=== PATIENT | female | born 1990 | race Caucasian/White ===

== ENCOUNTER 2019-08-14 17:06 | Emergency (ER) | payer OTHER ==
[~2019-08-14] VITALS: Ht 157.5 cm; Wt 84.1 kg
[2019-08-14 17:14] VITALS: TEMP 98.6
[2019-08-14 18:01] LABS: BASO % 0.4 % (0.0-2.0); EOS # 0.1 (0.0-0.7); GRAN % 61.3 % (42.2-75.2); HEMATOCRIT 41.2 % (37.0-47.0); LYMPH # 2.4 (1.2-3.4); LYMPH % 29.4 % (20.0-51.0); MEAN CELL VOLUME 93 fl (80.0-100.0); MEAN CORPUSCULAR HEMOGLOBIN 32 pg (27.0-31.0); MEAN CORPUSCULAR HGB CONC 34 g/dl (33.0-37.0); MEAN PLATELET VOLUME 10.3 fl (7.4-10.4); MONO # 0.6 (0.1-0.6); MONO % 7.7 % (1.7-9.3); PLATELET COUNT 266 K/mm3 (130-400); RED BLOOD COUNT 4.45 M/mm3 (4.10-5.30); REDCELL DISTRIBUTION WIDTH-CV 12.1 % (11.5-14.5)
[2019-08-14 18:03] LABS: ALBUMIN 4.3 gm/dL (3.5-5.0); BILIRUBIN,TOTAL 0.3 mg/dL (0.0-1.0); C-REACTIVE PROTEIN 0.9 mg/dL (0.0-0.9); CALCIUM 9.5 mg/dL (8.4-10.2); CREATININE, serum 0.68 (0.52-1.25); POTASSIUM 4.1 mmol/L (3.4-5.0); TOTAL PROTEIN 7.8 gm/dL (6.4-8.2)
[2019-08-14 18:45] LABS: COLLECTION METHOD CLEAN CATCH
[2019-08-14 19:00] LABS: MUCOUS Present /lpf; PH 6 (5-8); URINE APPEARANCE Clear; URINE BACTERIA None Seen /hpf; URINE BILIRUBIN Negative (NEGATIVE); URINE BLOOD 2+ (NEGATIVE); URINE COLOR Yellow; URINE GLUCOSE Negative (NEGATIVE); URINE KETONE Negative (NEGATIVE); URINE LEUKOCYTE ESTERASE Negative (NEGATIVE); URINE NITRATE Negative (NEGATIVE); URINE PROTEIN(semi-quant) Negative (NEGATIVE); URINE UROBILINOGEN Negative (NEGATIVE)
[2019-08-14] MEDS ORDERED: ZOFRAN ODT4 MG PO (19:34)
[2019-08-14 19:51] VITALS: BP 115/72; PULSE 58
== END 2019-08-14 19:38 | disposition home or self-care (01) ==
LOC: COL.ER 17:06
PROVIDERS: Physician Assistant
DX: R11.2 Nausea with vomiting, unspecified (principal)
CPT/HCPCS: J1885; J2405; J7030

== ENCOUNTER 2019-09-29 21:01 | Emergency (ER) | payer OTHER ==
[~2019-09-29] VITALS: Ht 154.9 cm; Wt 81.8 kg
[~2019-09-29 21:01] MED LIST: ZOFRAN ODT4 MG PO
[2019-09-29 21:09] VITALS: TEMP 98.9
[2019-09-29 22:12] LABS: STREP SCREEN NEGATIVE
[2019-09-29] MEDS ORDERED: PREDNISONE20 MG PO (22:53)
[2019-09-29] MEDS ORDERED: ZITHROMAX Z PA250 MG PO (22:53)
[2019-09-29 23:11] VITALS: BP 115/90; PULSE 85
== END 2019-09-29 23:12 | disposition home or self-care (01) ==
LOC: COL.ER 21:01
PROVIDERS: Physician Assistant
DX: J06.9 Acute upper respiratory infection, unspecified (principal)
CPT/HCPCS: J7512

== ENCOUNTER 2020-04-20 14:23 | Emergency (ER) | payer SELFPAY ==
[~2020-04-20] VITALS: Ht 154.9 cm; Wt 72.7 kg
[~2020-04-20 14:23] MED LIST changes: +PREDNISONE20 MG PO; +ZITHROMAX Z PA250 MG PO
[2020-04-20 15:47] VITALS: BP 124/64; PULSE 88; TEMP 98.6
[2020-04-20] MEDS ORDERED: BACTRIM DS 8001 TAB PO (15:57)
== END 2020-04-20 15:50 | disposition home or self-care (01) ==
LOC: COL.ER 14:23
DX: L03.113 Cellulitis of right upper limb (principal); Z23 Encounter for immunization; W01.198A Fall on same level from slipping, tripping and stumbling with subsequent striking against other object, initial encounter; Y99.0 Civilian activity done for income or pay
CPT/HCPCS: J0696; J1885

== ENCOUNTER 2020-04-22 02:29 | Inpatient (IN) | payer SELFPAY ==
[2020-04-22] VITALS (13 sets, daily range): BP systolic 100–121; BP diastolic 40–65; PULSE 52–87; TEMP 98.1–98.9
[~2020-04-22] VITALS: Ht 154.9 cm; Wt 81.6 kg
[~2020-04-22 02:29] MED LIST changes: +BACTRIM DS 8001 TAB PO
[2020-04-22 03:11] LABS: BASO % 0.4 % (0.0-2.0); EOS # 0.1 (0.0-0.7); EOS % 0.9 % (0-4.0); GRAN # 4.8 (1.4-6.5); GRAN % 63.3 % (42.2-75.2); HEMATOCRIT 40.8 % (37.0-47.0); HEMOGLOBIN 13.4 g/dl (12.5-16.0); LYMPH # 1.9 (1.2-3.4); LYMPH % 25.6 % (20.0-51.0); MEAN CELL VOLUME 95 fl (80.0-100.0); MEAN CORPUSCULAR HEMOGLOBIN 31 pg (27.0-31.0); MEAN CORPUSCULAR HGB CONC 33 g/dl (33.0-37.0); MEAN PLATELET VOLUME 10.6 fl (7.4-10.4); MONO # 0.7 (0.1-0.6); MONO % 9.5 % (1.7-9.3); PLATELET COUNT 227 K/mm3 (130-400); REDCELL DISTRIBUTION WIDTH-CV 12.5 % (11.5-14.5)
[2020-04-22 03:22] LABS: ALBUMIN 4.2 gm/dL (3.5-5.0); BILIRUBIN,TOTAL 0.7 mg/dL (0.0-1.0); CALCIUM 9.4 mg/dL (8.4-10.2); CREATININE, serum 0.89 (0.52-1.25); POTASSIUM 4.2 mmol/L (3.4-5.0); TOTAL PROTEIN 8.1 gm/dL (6.4-8.2)
[2020-04-22 03:35] LABS: C-REACTIVE PROTEIN 13.6 mg/dL (0.0-0.9)
--- NOTE | 2020-04-22 06:35 | NUR ---
Patient arrived from ED via bed. Vancomycin infusing to left hand IV. Reported to have itching and rash across upper back and her chest and was given IV Benadryl in ED. Area to right elbow is red, hot, and swollen. Area marked. Ortho in to see patient this morning. Patient denies needs. 5 page completed, med rec completed, and infectious screening completed. Will report off to day shift nurse.
--- NOTE | 2020-04-22 10:20 | NUR ---
Merchandise Support Associate met with patient to discuss discharge planning. Patient lives in [place] with her [place] (ph#[phone]). Patient reports she has a primary care physician on [place] and obtains medications from [facility]. Patient reports she has , however she also has workmans comp as her admit is related to a work injury. Patient is employed at the [employer] in [facility]. Patient does not use any DME and is independent with ADLS. Patient does not have Advance Directives and is not interested in setting them up at this time. SELVIN consulted Sabi Financial Counselor who advised patient will appear as self pay until patient contacts her HR department to obtain workmans comp information. SELVIN will continue to follow.
--- NOTE | 2020-04-22 10:45 | NUR ---
PATIENT GOING DOWN TO OR VIA BED
--- NOTE | 2020-04-22 13:20 | NUR ---
PATIENT BACK IN ROOM 347 AND IS DROWSY POST OP. VSS. O2 @ 2L PER NC WITH SATS IN MID TO UPPER 90'S. PAIN WELL MANAGED AT THIS TIME. PACU REPORTS SOME PAIN ISSUES AND GAVE FENTANYL. PAIN IS NOW 2-3 ON PAIN SCALE AND PATIENT IS SLEEPING COMFORTABLY. RIGHT ELBOW DRESSING IS CD&I WITH BULKY ACEWRAP. HEAD TO TOE ASSESSMENT WNL. NO C/O N/V. IV FLUIDS INFUSING INTO LEFT HAND. NO OTHER NEEDS AT THIS TIME. CALL LIGHT IN REACH.
[2020-04-23 03:56] VITALS: BP 109/54; PULSE 56; TEMP 97.8
--- NOTE | 2020-04-23 05:10 | NUR ---
Patient has rested well throughout the night. PRN pain medication given x1 this shift. Antibiotics given per orders. Dressing to right elbow noted to be clean, dry, and intact. Patient states the dressing makes her arm heavy, and states its hard to move around. Patient educated about contact precautions d/t MRSA in her wound. Patient verbalized understanding. IVF continue to left hand. Patient independent with ambulation to the restroom. Denies any further needs. Will continue to monitor.
--- NOTE | 2020-04-23 07:00 | NUR ---
Bedside shift report received from LUIS Tidwell. pT awake and resting in bed, requests water, will provide.
[2020-04-23 08:00] VITALS: BP 113/68; PULSE 55; TEMP 97.9
--- NOTE | 2020-04-23 09:06 | NUR ---
Assessment charted. Pt on side napping, RUE elevated on pillows. 1+ swelling to R hand but CMS intact and pt able to move fine. Bulky occlusive dressing in place on RUE, no drainage. LH INT, taking PO well. Pt reports pain at 6/10 to R elbow, PRN pain meds provided. Denies needs, will continue to monitor.
--- NOTE | 2020-04-23 11:34 | NUR ---
PT called d/t discomfort and swelling in R hand, called Allegra Velasco CARBURIZER with Ortho and per her recs loosened CONNIE wraps on arms and pt stated it was feeling much better. Called Jabari and left VM for recs on antibiotics.
[2020-04-23 12:05] VITALS: BP 117/64; PULSE 69; TEMP 97.8
[2020-04-23 15:17] VITALS: BP 106/52; PULSE 61; TEMP 97.6
--- NOTE | 2020-04-23 18:24 | NUR ---
Pt resting in bed, sleeping on and off this afternoon, PRN medications given for pain as needed. Swelling to R hand improved since loosening CONNIE wrap. Will give bedside shift report to nightshift nurse who will resume care.
--- NOTE | 2020-04-23 19:30 | NUR ---
Assessment complete. Resting in bed. Right elbow drsg CDI. Right hand mild edema, moves all digits, CMS intact. Reports pain right elbow slightly improved after pain med. Denies needs at this time.
[2020-04-23 19:50] VITALS: BP 109/45; PULSE 69; TEMP 97.6
[2020-04-24 00:25] VITALS: BP 118/56; PULSE 61; TEMP 98
--- NOTE | 2020-04-24 02:03 | NUR ---
PRN Zofran admin for c/o nausea.
[2020-04-24 03:51] VITALS: BP 105/51; PULSE 63; TEMP 98.3
[2020-04-24 07:05] LABS: BASO % 0.2 % (0.0-2.0); EOS # 0.1 (0.0-0.7); EOS % 1.9 % (0-4.0); GRAN # 2.5 (1.4-6.5); GRAN % 46.4 % (42.2-75.2); LYMPH # 2.4 (1.2-3.4); LYMPH % 44.9 % (20.0-51.0); MEAN CELL VOLUME 99 fl (80.0-100.0); MEAN CORPUSCULAR HGB CONC 33 g/dl (33.0-37.0); MEAN PLATELET VOLUME 11.1 fl (7.4-10.4); MONO # 0.3 (0.1-0.6); MONO % 6.4 % (1.7-9.3); PLATELET COUNT 215 K/mm3 (130-400); RED BLOOD COUNT 3.55 M/mm3 (4.10-5.30); REDCELL DISTRIBUTION WIDTH-CV 12.6 % (11.5-14.5)
[2020-04-24 07:12] LABS: HEMATOCRIT 35.1 % (37.0-47.0); HEMOGLOBIN 11.4 g/dl (12.5-16.0); MEAN CORPUSCULAR HEMOGLOBIN 32 pg (27.0-31.0)
[2020-04-24 07:26] LABS: POTASSIUM 4.3 mmol/L (3.4-5.0)
[2020-04-24 07:29] LABS: CREATININE, serum 0.66 (0.52-1.25)
[2020-04-24 07:34] VITALS: BP 103/59; PULSE 50; TEMP 97.8
--- NOTE | 2020-04-24 09:53 | NUR ---
PORTIA Tinoco here to see patient.
--- NOTE | 2020-04-24 09:54 | NUR ---
Patient alert and oriented, answers questions appropriately. See assessment. RUE with gauze and CONNIE in place, CDI. Active ROM to RUE, pulses palpable, no numbness or tingling noted. No c/o pain or discomfort at this time.
[2020-04-24 12:00] VITALS: BP 109/51; PULSE 62; TEMP 97.9
[2020-04-24 15:47] VITALS: BP 114/50; PULSE 68; TEMP 97.9
[2020-04-24 20:00] VITALS: BP 107/62; PULSE 57; TEMP 97.9
--- NOTE | 2020-04-24 20:00 | NUR ---
At time of assessment, patient is awake in bed watching TV. She does not complain of any pain. Heart sounds are normal/regular, lungs are clear, no edema is present. Her right elbow cellulitis area is dressed with an aquacell and is clean, dry and intact. No new concerns at this time. Will continue to monitor.
[2020-04-25] VITALS: BP 104/62; PULSE 62; TEMP 98
[2020-04-25 03:52] VITALS: BP 106/52; PULSE 62; TEMP 98
[2020-04-25 07:09] LABS: BASO % 0.2 % (0.0-2.0); EOS # 0.2 (0.0-0.7); EOS % 3.3 % (0-4.0); GRAN # 2.3 (1.4-6.5); GRAN % 41.7 % (42.2-75.2); HEMATOCRIT 38.9 % (37.0-47.0); HEMOGLOBIN 12.6 g/dl (12.5-16.0); LYMPH # 2.6 (1.2-3.4); LYMPH % 47.7 % (20.0-51.0); MEAN CELL VOLUME 97 fl (80.0-100.0); MEAN CORPUSCULAR HEMOGLOBIN 32 pg (27.0-31.0); MEAN CORPUSCULAR HGB CONC 32 g/dl (33.0-37.0); MEAN PLATELET VOLUME 10.6 fl (7.4-10.4); MONO # 0.4 (0.1-0.6); MONO % 6.9 % (1.7-9.3); PLATELET COUNT 245 K/mm3 (130-400); REDCELL DISTRIBUTION WIDTH-CV 12.3 % (11.5-14.5)
[2020-04-25 07:35] LABS: ALBUMIN 3.3 gm/dL (3.5-5.0); BILIRUBIN,TOTAL 0.2 mg/dL (0.0-1.0); CALCIUM 8.5 mg/dL (8.4-10.2); CREATININE, serum 0.68 (0.52-1.25); POTASSIUM 4.2 mmol/L (3.4-5.0); TOTAL PROTEIN 6.7 gm/dL (6.4-8.2)
--- NOTE | 2020-04-25 08:00 | NUR ---
Patient in bed resting. Alert and oriented x 3. Assessment complete. Aquacell to right elbow is CDI. IV to left forarm noted. Denies pain or further needs at this time.
[2020-04-25 08:03] VITALS: BP 105/59; PULSE 53; TEMP 98.1
[2020-04-25] MEDS ORDERED: CUBICIN 500MG500 MG IV (11:10)
[2020-04-25 11:17] VITALS: BP 97/45; PULSE 59; TEMP 98
--- NOTE | 2020-04-25 13:57 | NUR ---
The patient is to discharge back home today, 04/25. ID is recommending Dapto IV daily for 14 days. The patient is self pay and pending Workers Compensation. SELVIN met with the patient to discuss the IV antibiotics and getting them in the [facility]. The patient was agreeable to this and states that she would be able to get the the [facility] everyday. She states that her employer, [employer], is filling out the Workers Comp paperwork today and that she will be going there after she discharges to shredder picker the paperwork and will then bring it back to the hospital. SELVIN notified Financial Counselor, Sabi. SELVIN contacted and faxed the patient's discharge orders and script to Leslie in the [facility]. Leslie reports that the patient will need to arrive tomorrow at 0800 for the IV antibiotics. SELVIN informed the patient and the patient's RN of this. No additional needs at this time.
--- NOTE | 2020-04-25 15:40 | NUR ---
Discharge education provided to patient. Educated patient on PICC line care and follow up appointments. Educated on new antibiotic. All questions answered. Educated on when to call provider. Denies further needs at this time. Patient out with surgical staff. No further needs at this time.
[2020-04-26] MEDS ORDERED: BACTRIM DS 8001 TAB PO ×2 (08:47→08:48)
== END 2020-04-25 15:40 | disposition home or self-care (01) | DRG 501 ==
LOC: COL.ER 02:29 → SURG 04:11 → COL.ER 04:11 → SURG 04:11
PROVIDERS: Orthopaedic Surgery; Physician Assistant
PROC: 0MT30ZZ Resection of Right Elbow Bursa and Ligament, Open Approach (ICD-10-PCS; principal; 2020-04-22 10:30)
PROC: 02HV33Z Insertion of Infusion Device into Superior Vena Cava, Percutaneous Approach (ICD-10-PCS; 2020-04-25)
DX: M70.22 Olecranon bursitis, left elbow (principal); L03.113 Cellulitis of right upper limb; E66.9 Obesity, unspecified; B95.62 Methicillin resistant Staphylococcus aureus infection as the cause of diseases classified elsewhere; Z68.34 Body mass index [BMI] 34.0-34.9, adult; Z98.51 Tubal ligation status
CPT/HCPCS: OP; 99222-AI; 99232-AI; 99239; A9284; C1751; J0690; J0878; J1100; J1170; J1200; J1885; J2405; J2704; J3010; J3370; J7030; J7050

== ENCOUNTER 2020-05-09 08:00 | Outpatient (RCR) | payer SELFPAY ==
[2020-04-26 09:07] VITALS: BP 112/96; PULSE 71; TEMP 98.2
[2020-04-27 08:02] VITALS: BP 109/75; PULSE 82; TEMP 98.2
[2020-04-28 08:10] VITALS: BP 117/75; PULSE 82; TEMP 98.7
[2020-04-29 08:06] VITALS: BP 125/80; PULSE 78; TEMP 98.1
[2020-04-30 07:44] VITALS: BP 123/75; PULSE 67; TEMP 98.3
[2020-05-02 08:49] VITALS: BP 106/70; PULSE 62; TEMP 97.8
--- NOTE | 2020-05-02 08:50 | NUR ---
PICC intact left upper arm. With sterile technique left upper arm PICC dressing change done with insertion site cleansed with ChloraPrep 1, chlorhexidine impregnated disc applied, skin prep, StatLock, and Tegaderm applied. No signs or symptoms of IV complications noted. No concerns voiced. Arm wrapped with Jae to protect catheter.
[2020-05-02 09:38] LABS: ALBUMIN 4.2 gm/dL (3.5-5.0); BILIRUBIN,TOTAL 0.5 mg/dL (0.0-1.0); CALCIUM 9.3 mg/dL (8.4-10.2); CREATININE, serum 0.77 (0.52-1.25); POTASSIUM 4.4 mmol/L (3.4-5.0); TOTAL PROTEIN 7.9 gm/dL (6.4-8.2)
[2020-05-03 09:13] VITALS: BP 99/74; PULSE 72; TEMP 97.9
[2020-05-04 08:50] VITALS: BP 110/60; PULSE 66; TEMP 97.8
[2020-05-05 08:34] VITALS: BP 132/77; PULSE 70; TEMP 98
[2020-05-06 09:15] VITALS: BP 112/73; PULSE 65; TEMP 97.7
[2020-05-07 08:40] VITALS: BP 120/72; PULSE 62; TEMP 97.6
[2020-05-08 09:09] VITALS: BP 116/78; PULSE 63; TEMP 97.4
[~2020-05-09] VITALS: Ht 154.9 cm; Wt 80.4 kg
[2020-05-09 08:30] VITALS: BP 116/85; PULSE 69; TEMP 97.5
[2020-05-09 08:48] LABS: BASO % 0.4 % (0.0-2.0); EOS # 0.1 (0.0-0.7); EOS % 0.8 % (0-4.0); GRAN # 3.6 (1.4-6.5); GRAN % 48.2 % (42.2-75.2); HEMATOCRIT 39.8 % (37.0-47.0); HEMOGLOBIN 13.3 g/dl (12.5-16.0); LYMPH # 3.3 (1.2-3.4); LYMPH % 43.9 % (20.0-51.0); MEAN CELL VOLUME 95 fl (80.0-100.0); MEAN CORPUSCULAR HEMOGLOBIN 32 pg (27.0-31.0); MEAN CORPUSCULAR HGB CONC 33 g/dl (33.0-37.0); MEAN PLATELET VOLUME 10.8 fl (7.4-10.4); MONO # 0.5 (0.1-0.6); MONO % 6.6 % (1.7-9.3); PLATELET COUNT 255 K/mm3 (130-400); REDCELL DISTRIBUTION WIDTH-CV 12.3 % (11.5-14.5)
[2020-05-09 09:06] LABS: ALANINE AMINOTRANSFERASE 18 U/L (4-34); ALBUMIN 4.2 gm/dL (3.5-5.0); ALKALINE PHOSPHATASE 77 U/L (50-136); ANION GAP 7 mmol/L (7-16); AST,SGOT 23 U/L (15-37); BILIRUBIN,TOTAL 0.5 mg/dL (0.0-1.0); BLOOD UREA NITROGEN 13 mg/dL (7-17); CALCIUM 9.2 mg/dL (8.4-10.2); CARBON DIOXIDE 24 mmol/L (22-30); CHLORIDE 106 mmol/L (98-107); CREATINE KINASE 68 U/L (30-135); CREATININE, serum 0.72 (0.52-1.25); GLUCOSE 99 mg/dL (74-106); POTASSIUM 3.7 mmol/L (3.4-5.0); SODIUM 138 mmol/L (137-145); TOTAL PROTEIN 7.7 gm/dL (6.4-8.2)
[2020-05-09 09:08] LABS: C-REACTIVE PROTEIN < 0.5 mg/dL (0.0-0.9)
[2020-05-09 10:13] LABS: ERYTHROCYTE SEDIMENTATION RATE 8 mm/hr (0-20)
--- NOTE | 2020-05-09 11:36 | NUR ---
PT WAS CALLED AND NOTIFIED OF HER PO ABX THAT WAS SENT TO HER PHARMACY. PT ENCOURAGED TO START TODAY. PT STATED SHE WAS WAITING ON HER WORK COMP CHECK TO COME IN THE MAIL TODAY AND THEN SHE WILL BE ABLE TO PAY FOR THE ABX. PT IS AWARE OF F/U APPT ON 05/26/2020.
== END 2020-05-09 09:30 | disposition still patient (30) ==
LOC: EUO 08:00
PROVIDERS: Hospitalist; Nurse Practitioner
DX: Z22.322 Carrier or suspected carrier of Methicillin resistant Staphylococcus aureus (principal); M70.20 Olecranon bursitis, unspecified elbow; T14.8XXA Other injury of unspecified body region, initial encounter
CPT/HCPCS: J0878

== ENCOUNTER → 2020-05-09 | Outpatient (CLI) | payer SELFPAY ==
[~2020-05-09] MED LIST changes: +CUBICIN 500MG500 MG IV
== END ==
LOC: ZCOL.LAB 13:20
DX: M70.20 Olecranon bursitis, unspecified elbow (principal); Z22.322 Carrier or suspected carrier of Methicillin resistant Staphylococcus aureus; T14.8XXA Other injury of unspecified body region, initial encounter